=== PATIENT | male | born 1930 | race Caucasian/White ===

== ENCOUNTER → 2017-01-28 | Outpatient (CLI) | payer MEDICARE, BC ==
[~2017-01-28] MED LIST: AMLODIPINE BESY10 MG; ASPIRIN81 MG PO; CARAFATE1 GM PO; FOLIC ACID1 MG PO; INFED100 MG/2 M IM; K-TAB ER20 MEQ PO; KLOR-CON M1010 MEQ PO; LASIX40 M1 PO; LASIX40 MG PO; LEVAQUIN500 MG PO; LOPRESSOR25 MG PO; MIRALAX17 GM PO; MUCINEX D ER 11 EACH PO; PLAVIX75 M1; PRILOSEC20 MG; PROTONIX40 MG PO; SYNTHROID75 MCG PO; TIMOPTIC 0.5%1 EACH EYEBOTH; VENOFER200 MG/10 IM; VITAMIN B-121000 MC1; XALATAN 0.005%2.5 ML EYEBOTH; XANAX0.5 MG PO; ZOCOR40 MG PO
== END | disposition short-term general hospital (02) ==
LOC: CLONCO 09:43
DX: D46.9 Myelodysplastic syndrome, unspecified (principal); N18.9 Chronic kidney disease, unspecified; D63.1 Anemia in chronic kidney disease; D50.9 Iron deficiency anemia, unspecified; D46.4 Refractory anemia, unspecified; D47.2 Monoclonal gammopathy; K92.2 Gastrointestinal hemorrhage, unspecified

== ENCOUNTER → 2017-02-25 | Outpatient (CLI) | payer MEDICARE, BC | END | disposition short-term general hospital (02) | LOC: CLONCO 07:06 | DX: D46.9 Myelodysplastic syndrome, unspecified (principal); N18.9 Chronic kidney disease, unspecified; D63.1 Anemia in chronic kidney disease; R58 Hemorrhage, not elsewhere classified | CPT/HCPCS: J0881 ==